=== PATIENT | male | born 1940 | race Caucasian/White ===

== ENCOUNTER 2016-12-12 06:15 | Emergency (ER) | payer OTHER ==
[2016-12-12 06:23] VITALS: TEMP 97.9
[2016-12-12] MEDS ORDERED: PHENYLEPHRINE 0.5% NASAL 15 ML SPRAY EACHNARE ONE (06:34)
--- NOTE | 2016-12-12 06:41 | EDPHY ---
H & P Stated Complaint: My nostrils aren't open enough Time Seen by Provider: 12/12/16 06:29 HPI/ROS: Chief Complaint: Difficulty breathing through his nose HPI: 76-year-old male presenting complaining that he feels like he can't get enough oxygen when he is breathing through his nose. Patient states that all night he has felt increasingly congested and short of breath. He just feels that he can't get enough oxygen through his nose and it seemed to be blocked. Does not have any chest pain. Does have a history of atrial fibrillation and has been compliant with medications. Does not think he is in atrial fibrillation now. Has had a mild nonproductive cough for the last couple of days. Has not had any runny nose. He does have some stuffiness in his ears as well. No fevers or chills. No headache. No nausea or vomiting. No leg pain or swelling. Has not had increasing orthopnea. ROS: 10 point Review of Systems is negative except as noted in the HPI. PMH: Atrial fibrillation, diabetes Social History: No smoking, no alcohol, no recreational drug use Family History: non-contributory Physical Exam: Gen: Awake, Alert, No Distress HEENT: Nose: no rhinorrhea Eyes: PERRLA, EOMI Mouth: Moist mucosa Neck: Supple, no JVD Chest: nontender, lungs clear to auscultation Heart: S1, S2 normal, no murmur Abd: Soft, non-tender, no guarding Back: no CVA tenderness, no midline tenderness Ext: no edema, non-tender Skin: no rash Neuro: CN II-XII intact, Sensation grossly intact, Strength 5/5 in bilateral upper and lower extremities - Personal History Current Tetanus/Diphtheria Vaccine: Yes Current Tetanus Diphtheria and Acellular Pertussis (TDAP): Yes - Medical/Surgical History Hx Asthma: No Hx Chronic Respiratory Disease: No Hx Diabetes: Yes Hx Cardiac Disease: Yes Hx Renal Disease: No Hx Cirrhosis: No Hx Alcoholism: No Hx HIV/AIDS: No Hx Splenectomy or Spleen Trauma: No Other PMH: hernia, appendectomy, afib, diabetic - Social History Smoking Status: Former smoker Constitutional: Initial Vital Signs Temperature (C) 36.6 C 12/12/16 06:19 Heart Rate 83 12/12/16 06:19 Respiratory Rate 16 12/12/16 06:19 Blood Pressure 143/71 H 12/12/16 06:19 O2 Sat (%) 95 12/12/16 06:19 O2 Delivery Mode Room Air Allergies/Adverse Reactions: No Known Allergies Allergy (Unverified 12/12/16 06:24) Home Medications: Medication Instructions Recorded Aspirin 81mg (*) 12/12/16 Diltiazem 12/12/16 Flecainide Acetate 12/12/16 Glimepiride 12/12/16 Humulin 70-30 Vial 12/12/16 Metformin 1000 mg 12/12/16 Medical Decision Making ED Course/Re-evaluation: Patient presenting with the sensation he can't get full breath through his nose. Symptoms were resolved after I have applied 0.5% Atilio-Synephrine bilaterally. After that he says he feels much clear that he can get a full breath. His oxygen saturations are excellent. His lungs are clear. He is in a sinus rhythm. I do not think that this is cardiac or pulmonary in nature. He is otherwise in good health. I think symptoms are consistent with a viral upper respiratory infection. He is also telling me he has had increasing throat clearing and a dry cough recently all consistent with an upper respiratory process. No indication for antibiotics at this time. He can use the Atliio-Synephrine twice a day for the next 3 days only. I will start him on Flonase. He can use saline rinses. He will follow up with primary care physician in 2-3 days for reassessment. He will return for any worsening symptoms. - Data Points Medications Given: Discontinued Medications Phenyle[facility] HCl (Neosynephrine) [facility] Stop: 12/12/16 06:35 Last Admin: 12/12/16 06:39 Dose: 1 spray Departure - Departure Disposition: Home, Routine, Self-Care Clinical Impression: Viral URI, Nasal congestion Condition: Good Instructions: Phenylephrine (Into the nose), Upper Respiratory Infection (ED) Additional Instructions: You may use the Atilio-Synephrine nasal spray twice a day for 3 days only. Start using Flonase [id number] according to package instructions. You may also start using saline rinses also available [id number]. Return to the emergency department for increasing shortness of breath, chest pain, high fevers or chills, nausea, vomiting, or any other concerns. Follow up with primary care physician in 2-3 days for further evaluation. Referrals: AYLIN VICK [Primary Care Provider] - As per Instructions
[2016-12-12 07:05] VITALS: BP 122/86; PULSE 54; RESP 17; O2SAT 100
== END 2016-12-12 07:04 | disposition home or self-care (01) ==
DX: J06.9 Acute upper respiratory infection, unspecified (principal); R09.81 Nasal congestion; E11.9 Type 2 diabetes mellitus without complications; Z79.4 Long term (current) use of insulin; Z79.82 Long term (current) use of aspirin; Z79.84 Long term (current) use of oral hypoglycemic drugs; Z87.891 Personal history of nicotine dependence